=== PATIENT | female | born 1995 | race African-American/Black ===

== ENCOUNTER 2017-11-17 16:50 | Emergency (ER) | payer OTHER ==
[~2017-11-17] VITALS: Ht 170.2 cm; Wt 70.0 kg
[2017-11-17 16:53] VITALS: BP 107/64
== END 2017-11-17 20:14 | disposition left against medical advice (07) ==
LOC: ER 17:40
DX: M25.561 Pain in right knee (principal); Z53.21 Procedure and treatment not carried out due to patient leaving prior to being seen by health care provider